=== PATIENT | male | born 1995 | race Caucasian/White ===

== ENCOUNTER 2019-03-04 07:12 | Outpatient (CLI) | payer OTHER ==
[~2019-03-04 07:12] MED LIST: AMOX1TAB12 PO; MOTRIN600 MG PO
== END 2019-03-04 07:26 | disposition home or self-care (01) ==
LOC: LAB 07:12
DX: N30.00 Acute cystitis without hematuria (principal); D50.8 Other iron deficiency anemias; I10 Essential (primary) hypertension; E78.00 Pure hypercholesterolemia, unspecified; E06.3 Autoimmune thyroiditis

== ENCOUNTER 2019-03-25 08:08 | Outpatient (CLI) | payer OTHER | END 2019-03-25 08:09 | disposition home or self-care (01) | LOC: SONOGRAMA 08:08 | DX: E06.3 Autoimmune thyroiditis (principal) ==